=== PATIENT | male | born 1975 | race Caucasian/White ===

== ENCOUNTER 2021-03-07 20:21 | Emergency (ER) | payer SELFPAY, OTHER | END 2021-03-07 21:33 | disposition home or self-care (01) | LOC: MADERS 20:21 | DX: S13.4XXA Sprain of ligaments of cervical spine, initial encounter (principal); S20.212A Contusion of left front wall of thorax, initial encounter; V64.5XXA Driver of heavy transport vehicle injured in collision with heavy transport vehicle or bus in traffic accident, initial encounter ==

== ENCOUNTER 2021-03-22 17:27 | Emergency (ER) | payer OTHER, SELFPAY | END 2021-03-22 19:13 | disposition home or self-care (01) | LOC: MADERS 17:27 | DX: F07.81 Postconcussional syndrome (principal); F17.290 Nicotine dependence, other tobacco product, uncomplicated | CPT/HCPCS: 70450; 70486 ==